=== PATIENT | female | born 1965 | race Caucasian/White ===

== ENCOUNTER 2020-06-08 08:06 | Outpatient (CLI) | payer BC, SELFPAY ==
--- NOTE | 2020-06-08 08:19 | MM_ITS ---
WS: [id number] Exam: [id number] Date/Time of Exam: 06/08/2020 8:23 AM Reason For Exam: SCREENING VIEWS: MLO and CC views both breasts. Comparison made with prior exam of 06/02/2016. Findings: There was no sign of mass, architectural distortion or suspicious calcification in either breast. Fa tty MM/[id number] Impression: BI-RADS: 2-Benign FOLLOW-UP: 1 Year Follow-up This mammogram was also analyzed by the Computer Aided Detection System R2 Imag e Coarse Wire Drawer.
== END 2020-06-08 08:07 | disposition home or self-care (01) ==
LOC: RADSHAW 08:10
PROVIDERS: Family Provider Family Medicine; PCP Family Medicine; Visit Provider Family Medicine
DX: Z12.31 Encounter for screening mammogram for malignant neoplasm of breast (principal)
CPT/HCPCS: 77067

== ENCOUNTER 2021-08-12 11:33 | Outpatient (CLI) | payer BC, SELFPAY ==
--- NOTE | 2021-08-12 11:40 | MM_ITS ---
WS: [id number] Bilateral screening digital mammogram, 08/12/2021 Clinical Data: SCREENING Comparison: 06/08/2020, 04/18/2019, 06/02/2016, 05/19/2015, 04/24/2014, 10/18/2011, 08/30/2010, 05/29/2009 , 05/05/2008. Findings: The breast parenchymal pattern shows fibroglandular tissue No spiculated masses or clustered calcific ations are seen. There are no secondary signs of carcinoma. MM/[id number] Impression: 1. Negative bilateral mammogram unchanged. 2. Recommend annual screening mammograms. BIRADS: 1-Negative FOLLOW UP: 1 Year Follow-up The CAD repairer and checker was used.
== END 2021-08-12 11:34 | disposition home or self-care (01) ==
LOC: RADSHAW 11:36
PROVIDERS: Family Provider Family Medicine; PCP Family Medicine; Visit Provider Family Medicine
DX: Z12.31 Encounter for screening mammogram for malignant neoplasm of breast (principal)
CPT/HCPCS: 77067